=== PATIENT | female | born 1985 | race Caucasian/White ===

== ENCOUNTER 2018-05-10 23:01 | Emergency (ER) | payer OTHER ==
[~2018-05-10] VITALS: Ht 167.6 cm; Wt 67.6 kg
[2018-05-10 23:59] VITALS: BP 120/86
[2018-05-12] MEDS ORDERED: BACTRIM DS TAB1 EACH PO (10:04)
[2018-05-12] MEDS ORDERED: PERCOCET 5-3251 EACH PO (10:04)
== END 2018-05-11 00:02 | disposition left against medical advice (07) ==
LOC: M.ERS 23:01
DX: Z53.21 Procedure and treatment not carried out due to patient leaving prior to being seen by health care provider (principal)

== ENCOUNTER 2018-05-12 09:29 | Emergency (ER) | payer OTHER ==
[~2018-05-12] VITALS: Ht 167.6 cm; Wt 68.0 kg
[2018-05-12] MEDS ORDERED: BACTRIM DS TAB1 EACH PO (10:04)
[2018-05-12] MEDS ORDERED: PERCOCET 5-3251 EACH PO (10:04)
[2018-05-12 10:44] LABS: ABSOLUTE EOSINOPHILS 0.2 thou/uL (0.0-0.7); ABSOLUTE LYMPHOCYTES 1.9 thou/uL (0.8-5.3); ABSOLUTE MONOCYTES 0.7 thou/uL (0.0-1.2); ABSOLUTE NEUTROPHILS 4.6 thou/uL (1.6-8.1); BASOPHILS 0.6 %; EOSINOPHILS 3.1 %; HEMATOCRIT 35.9 % (37.0-47.0); HEMOGLOBIN 11.6 gm/dL (12.0-15.0); LYMPHOCYTES 25.3 %; MCHC 32.4 g/dL (28.0-37.0); MCV 80.2 fL (80.0-100.0); MPV 8.6 fl. (7.2-11.1); NUCLEATED RBCS 0 /100WBC; PLATELET COUNT* 291 thou/uL (150-400); RBC 4.48 mil/uL (4.20-5.00); RDW-CV 14.9 % (10.5-14.5); WBC 7.5 thou/uL (4.0-11.0)
[2018-05-12 10:52] LABS: CALCIUM 9.3 mg/dL (8.5-10.1); CREATININE 0.8 mg/dL (0.6-1.3); POTASSIUM 3.7 mmol/L (3.5-5.1)
[2018-05-12 10:57] LABS: ALBUMIN 3.3 g/dL (3.4-5.0); TOTAL BILIRUBIN 0.2 mg/dL (<0.1-1.0); TOTAL PROTEIN 6.8 g/dL (6.4-8.2)
[2018-05-12 11:29] VITALS: BP 139/80
== END 2018-05-12 11:30 | disposition home or self-care (01) ==
LOC: M.ERS 09:29
PROVIDERS: Personal Emergency Response Attendant
DX: L73.2 Hidradenitis suppurativa (principal)